=== PATIENT | male | born 1995 | race Caucasian/White ===

== ENCOUNTER 2024-02-12 14:45 | Outpatient (CLI) | payer OTHER ==
--- NOTE | 2024-02-12 16:26 | XRAY Report ---
PROCEDURE: Wrist 3+V LT INDICATIONS: PAIN IN LEFT WRIST TECHNIQUE: 3 views of the wrist were acquired. COMPARISON: None. FINDINGS: Bones: No fractures or dislocations. No suspicious bony lesions. Soft tissues: No suspicious calcifications. IMPRESSION: No acute radiographic abnormality. If there is high concern for further derangement, consider MRI jona luation. Reviewed by: Tono Killian MD on 02/12/2024 4:25 PM PDT Approved by: Tono Killian MD on 02/12/2024 4:25 PM PDT Station ID: [id number]
== END 2024-02-12 15:00 | disposition home or self-care (01) ==
LOC: DI.N 14:45
PROVIDERS: ATTEND Physician Assistant
DX: M25.532 Pain in left wrist (principal)